=== PATIENT | female | born 1975 | race Caucasian/White ===

== ENCOUNTER 2017-01-26 15:29 | Emergency (ER) | payer MEDICAID ==
[2017-01-26 17:17] VITALS: BP 126/89
== END 2017-01-26 17:15 | disposition home or self-care (01) ==
LOC: ED 15:29
DX: I88.8 Other nonspecific lymphadenitis (principal); I10 Essential (primary) hypertension

== ENCOUNTER 2018-08-06 21:12 | Emergency (ER) | payer MEDICAID ==
[~2018-08-06] VITALS: Ht 167.6 cm; Wt 68.9 kg
[2018-08-06 21:17] VITALS: Ht 167.6 cm; Wt 68.9 kg
[2018-08-06 21:44] LABS: BASOPHIL % 0.4 % (0-2); PLATELET COUNT 317 x10^3mcL (130-400)
[2018-08-06 21:46] LABS: RED CELL DISTRIBUTION WIDTH 16.2 % (11.5-14.5)
[2018-08-06 22:06] LABS: CALCIUM 9.3 mg/dL (8.5-10.1); CHLORIDE SERUM 102 mmol/L (98-107); CREATININE SERUM 0.7 mg/dL (0.6-1.0); GFR1 > 60 mL/min; GLUCOSE SERUM 95 mg/dL (74-106); POTASSIUM SERUM 3.8 mmol/L (3.5-5.1); SODIUM SERUM 140 mmol/L (136-145)
[2018-08-06 22:12] LABS: ALBUMIN 3.8 g/dL (3.4-5.0); ALKALINE PHOSPHATASE 76 U/L (46-116); ALT/SGPT 21 U/L (14-59); AST/SGOT 14 U/L (15-37); BILIRUBIN TOTAL 0.2 mg/dL (0.20-1.00); TOTAL PROTEIN, SERUM 7.5 g/dL (6.4-8.2)
[2018-08-06 22:54] VITALS: BP 124/71
== END 2018-08-06 22:54 | disposition home or self-care (01) ==
LOC: ED 21:12
PROVIDERS: Emergency Medicine
DX: R07.89 Other chest pain (principal); N64.4 Mastodynia; I10 Essential (primary) hypertension; F41.9 Anxiety disorder, unspecified; Z98.890 Other specified postprocedural states
CPT/HCPCS: J1885; Q0092

== ENCOUNTER 2018-11-14 22:28 | Emergency (ER) | payer MEDICAID ==
[~2018-11-14] VITALS: Ht 167.6 cm; Wt 68.2 kg
[2018-11-14 22:53] VITALS: Ht 167.6 cm; Wt 68.2 kg
[2018-11-15 00:54] VITALS: BP 126/79
== END 2018-11-15 00:54 | disposition home or self-care (01) ==
LOC: ED 22:28
DX: S80.02XA Contusion of left knee, initial encounter (principal); I10 Essential (primary) hypertension; Z98.51 Tubal ligation status; W18.30XA Fall on same level, unspecified, initial encounter; Y93.89 Activity, other specified; Y92.89 Other specified places as the place of occurrence of the external cause; Y99.8 Other external cause status
CPT/HCPCS: J1885

== ENCOUNTER 2018-12-07 16:41 | Emergency (ER) | payer MEDICAID ==
[~2018-12-07] VITALS: Ht 167.6 cm; Wt 66.5 kg
[2018-12-07 16:47] VITALS: Ht 167.6 cm; Wt 66.5 kg
[2018-12-07 21:48] VITALS: BP 129/93
== END 2018-12-07 21:48 | disposition home or self-care (01) ==
LOC: ED 16:41
DX: G43.909 Migraine, unspecified, not intractable, without status migrainosus (principal); R11.2 Nausea with vomiting, unspecified; F41.9 Anxiety disorder, unspecified; Z98.51 Tubal ligation status
CPT/HCPCS: 82962; J1885; J2765

== ENCOUNTER 2019-12-15 23:02 | Emergency (ER) | payer MEDICAID ==
[~2019-12-15] VITALS: Ht 167.6 cm; Wt 68.0 kg
[2019-12-15 23:07] VITALS: Ht 167.6 cm; Wt 68.0 kg
[2019-12-16 00:27] LABS: BASOPHIL % 0.7 % (0-2); PLATELET COUNT 292 x10^3mcL (130-400)
[2019-12-16 00:33] LABS: RED CELL DISTRIBUTION WIDTH 15.5 % (11.5-14.5)
[2019-12-16 00:36] LABS: CALCIUM 9.8 mg/dL (8.5-10.1); CARBON DIOXIDE 28.9 mmol/L (21-32); CHLORIDE SERUM 104 mmol/L (98-107); CREATININE SERUM 0.8 mg/dL (0.6-1.0); GFR1 > 60 mL/min; GLUCOSE SERUM 104 mg/dL (74-106); SODIUM SERUM 138 mmol/L (136-145)
[2019-12-16 00:39] LABS: ALBUMIN 3.8 g/dL (3.4-5.0); ALKALINE PHOSPHATASE 63 U/L (46-116); ALT/SGPT 21 U/L (14-59); AST/SGOT 17 U/L (15-37); BILIRUBIN TOTAL 0.2 mg/dL (0.20-1.00); TOTAL PROTEIN, SERUM 7.5 g/dL (6.4-8.2)
[2019-12-16 00:49] LABS: FREE T4 0.95 ng/dL (0.76-1.46); FREE THYROXINE INDEX 2.2 ug/dL (1.4-4.5)
[2019-12-16 01:20] LABS: T3 TOTAL 1.24 ng/mL
[2019-12-16 01:43] VITALS: BP 120/77
== END 2019-12-16 01:43 | disposition home or self-care (01) ==
LOC: ED 23:02
PROVIDERS: Emergency Medicine
DX: R07.89 Other chest pain (principal); R20.2 Paresthesia of skin; I10 Essential (primary) hypertension; Z98.890 Other specified postprocedural states
CPT/HCPCS: 84439; J1885; Q0092